=== PATIENT | male | born 2000 | race Hispanic/Latino ===

== ENCOUNTER 2022-05-13 15:37 | Emergency (ER) | payer SELFPAY ==
[2022-05-13] MEDS ORDERED: Lidocaine 1% PF 5 ML VIAL ONE (16:02)
[2022-05-13] MEDS ORDERED: Boostrix 0.5 ML (Tdap) VIAL ONE (16:59)
== END 2022-05-13 17:00 | disposition home or self-care (01) ==
LOC: ERS 15:37
DX: S61.412A Laceration without foreign body of left hand, initial encounter (principal); W27.0XXA Contact with workbench tool, initial encounter; Z23 Encounter for immunization
CPT/HCPCS: 12002; 90715